=== PATIENT | male | born 1930 | race Asian ===

== ENCOUNTER 2018-02-27 16:38 | Emergency (ER) | payer MEDICARE, BC ==
[2018-02-27] MEDS: ACETAMINOPHEN 500 MG TAB PO (17:10)
[2018-02-27] MEDS: DIPHTH/TET/ACEL PERTUSS (ADULT) 0.5 ML VIAL IM* (17:10)
== END 2018-02-27 18:11 | disposition home or self-care (01) ==
LOC: E/R 16:38
DX: S00.81XA Abrasion of other part of head, initial encounter (principal); R51 Headache; W01.198A Fall on same level from slipping, tripping and stumbling with subsequent striking against other object, initial encounter; Y92.510 Bank as the place of occurrence of the external cause; Z23 Encounter for immunization
CPT/HCPCS: 70450; 70486; 90471; 90715; 99284-25